=== PATIENT | male | born 1960 | race Caucasian/White ===

== ENCOUNTER 2016-11-14 19:26 | Observation (INO) | payer OTHER ==
--- NOTE | ~2016-11-14 | HP ---
History And Physical [address] [place]. [address] NAME: MANOJ ANDERSON : 58 STATUS : ADM Gabo PAT#: [id number] AGE: 56 ADM/REG DATE : 11/14/16 MR#: [id number] REPORT SERV DATE: 11/15/16 DICTATED BY: MAVIS WOODS JR. DATE: 11/15/16 REPORT STATUS : Draft TRANSCRIBED BY: MODL DATE: 11/15/16 DATE OF ADMISSION: 11/14/2016 REFERRING PHYSICIAN: Mavis Woods M.D. CHIEF COMPLAINT: Chest pain. HISTORY OF PRESENT ILLNESS: The patient is a 56-year-old, white male, with history of known ischemic heart disease, status post cardiac catheterization in November of 2015, for similar symptoms, for which the LAD stent was noted to be patent with DANIEL grade 3 flow. Minor luminal irregularities were noted in other vessels. He has been known to have ejection fraction of approximately 40 to 45% with anteroapical hypokinesis. 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 He presented via ambulance to [facility] for urgent evaluation. Troponin and cardiac enzymes were unremarkable, but he was noted to be hypertensive on arrival. Cardiac enzymes have subsequently been normal. He currently denies any nausea, vomiting, fevers, or chills. REVIEW OF SYSTEMS: A 10-point review of systems otherwise is unremarkable. His symptoms have improved since his electrolytes have been supplemented. ALLERGIES: NONE KNOWN. MEDICATIONS: Have included in the past, aspirin 81 mg daily, Plavix 75 mg daily, losartan, metoprolol, Levemir, and amiodarone, although he did not bring any medications and has no idea of home medications. His family is unable to provide any home list and medication reconciliation at this time is not possible. PAST MEDICAL HISTORY: Notable for history of known ischemic cardiomyopathy with ejection fraction of 40-45% with anterolateral hypokinesis with prior ST elevation myocardial infarction and ventricular fibrillatory arrest, history of acute kidney injury, history of dyslipidemia, prior pneumonia, prior rib fractures, diabetes mellitus, history of emphysema, history of ischemic cardiomyopathy, and a history of mild anxiety. PAST SURGICAL HISTORY: Notable for prior cardiac catheterization, prior PCI with stent. SOCIAL HISTORY: Notable for a dipping tobacco, chewing tobacco. No ethanol or smoking tobacco. FAMILY HISTORY: Notable for heart disease. PHYSICAL EXAMINATION: VITAL SIGNS: Temperature is 97 degrees, pulse is 58, respirations 14. The patient is History And Physical [address] [address] NAME: MANOJ ANDERSON : 58 STATUS : ADM Gabo PAT#: [id number] AGE: 56 ADM/REG DATE : 11/14/16 MR#: [id number] REPORT SERV DATE: 11/15/16 DICTATED BY: MAVIS WOODS JR. DATE: 11/15/16 REPORT STATUS : Draft TRANSCRIBED BY: TONA DATE: 11/15/16 afebrile. HEENT: Unremarkable. NECK: Supple without jugular venous distention. CARDIOVASCULAR SYSTEM: Regular rate and rhythm. S4. No S3. LUNGS: Clear. ABDOMEN: Benign without hepatomegaly. EXTREMITIES: 1+. No pedal edema. NEUROLOGIC: He is grossly intact. LABORATORY DATA: EKG is notable for sinus rhythm, old anterolateral AL, age undetermined. Chest x-ray reported otherwise unremarkable. Sodium 143, potassium 3.2, now treated, chloride 108, BUN 11, creatinine 0.94. Calcium 8.9, magnesium 2.1. H and H of 14.2 and 41.0, white count of 7.9, and platelet count of 251,000. CK-MB negative. Troponin less than 0.02 x2. IMPRESSION: 1. A 56-year-old white male with a history of ischemic cardiomyopathy with known left ventricular systolic dysfunction, history of recent cardiac catheterization with patent stent approximately ten months ago, history of hypertension, hypertensive on arrival. 2. Hypokalemia, symptomatic. PLANS AND RECOMMENDATIONS: 1. Electrolyte supplementation. 2. Reconciliation of medications. 3. Tobacco cessation. 4. Nuclear stress test in the a.m. with further recommendations to follow and further adjustment of medications. LUIS/TONA Mavis Woods Jr., M.D. / [id number] CC: Mavis Woods Jr., M.D.
[~2016-11-14 19:26] MED LIST: AMB10 PO; ASAB PO; BEN25 PO; COREG3 PO; COZ25 PO; GLUCOPHAGE1000 MG PO; HALF81 PO; IMDUR30 PO; LIPITOR40 PO; MEDROLPAK4 PO; PACERONE100 MG PO; PLAVIX PO; RAN500 PO
[2016-11-14 20:00] LABS: BASOPHILS 0.3 %; BASOPHILS ABSOLUTE 0.03 10/3/uL (0.0-0.16); EOSINOPHILS 1.5 %; EOSINOPHILS ABSOLUTE 0.15 10/3/uL (0.0-0.53); ER CBC TAT 0 Hrs 10 Mins; HEMATOCRIT 36.5 % (40.0-51.0); IMMATURE GRANULOCYTES 0.2 %; IMMATURE GRANULOCYTES ABSOLUTE 0.02 10/3/uL (0.0-0.11); LYMPHOCYTES 25.2 %; LYMPHOCYTES ABSOLUTE 2.53 10/3/uL (0.67-4.30); MEAN CORPUS HGB CONC 35.6 g/dL (32.0-36.0); MEAN CORPUSCULAR HEMOGLOB 31.3 pg (26.0-34.0); MEAN PLATELET VOLUME 10.8 fL (9.2-13.0); MONOCYTES 5.2 %; MONOCYTES ABSOLUTE 0.52 10/3/uL (0.21-1.20); NEUTROPHILS 67.6 %; NEUTROPHILS ABSOLUTE 6.78 10/3/uL (2.02-8.40); PLATELET COUNT 257 10/3/uL (150-400); RED CELL COUNT 4.16 10/6/uL (4.7-6.1)
[2016-11-14 20:01] LABS: MANUAL DIFF NO %; MEAN CORPUSCULAR VOLUME 87.7 fL (80-100)
[2016-11-14 20:08] LABS: INTERNATIONAL NORMAL RATI 1.1 UNITS (-); PROTIME (NOT ORD) 13.8 SEC (12.0-14.5)
[2016-11-14 20:16] LABS: A/G RATIO 1.4 (0.7-1.9); ALBUMIN 3.7 G/DL (3.5-5.0); ALKALINE PHOSPHATASE 54 U/L (45-117); CALCIUM, SERUM 8.9 MG/DL (8.5-10.4); CHLORIDE, SERUM 108 MMOL/L (96-112); CO2 (CARBON DIOXIDE) 24 MMOL/L (24-34); CREATININE 0.94 MG/DL (0.70-1.30); GFR AFRICAN AMERICAN 104 ML/MIN (>=60); GFR NON AFRICAN AMERICAN 90 ML/MIN (>=60); GLOBULIN 2.6 G/DL (2.5-4.1); POTASSIUM, SERUM 3.2 MMOL/L (3.5-5.3); SGOT(AST) 14 U/L (5-40); SGPT(ALT) 24 U/L (5-65); SODIUM, SERUM 143 MMOL/L (135-148); TOTAL BILIRUBIN 0.5 MG/DL (0-1.2); TOTAL PROTEIN 6.3 G/DL (6.0-8.5); TROPONIN I <0.02 NG/ML (<0.05)
[2016-11-14 20:19] LABS: BUN (BLOOD UREA NITROGEN) 11 MG/DL (6-23); GLUCOSE, SERUM 91 MG/DL (60-99)
[2016-11-14] MEDS ORDERED: PLAVIX PO (21:43)
[2016-11-14] MEDS ORDERED: GLUCPH PO (21:43)
[2016-11-14] MEDS ORDERED: HALF81 PO (21:44)
[2016-11-14] MEDS ORDERED: BEN25 PO (21:44)
[2016-11-14] MEDS ORDERED: NITROSTAT0.4 MG SL (21:44)
[2016-11-14] MEDS ORDERED: *UNABLE1 (21:44)
[2016-11-15 03:39] LABS: BASOPHILS 0.5 %; BASOPHILS ABSOLUTE 0.04 10/3/uL (0.0-0.16); EOSINOPHILS 2.7 %; EOSINOPHILS ABSOLUTE 0.21 10/3/uL (0.0-0.53); HEMOGLOBIN 14.2 g/dL (13.6-17.8); IMMATURE GRANULOCYTES 0.1 %; IMMATURE GRANULOCYTES ABSOLUTE 0.01 10/3/uL (0.0-0.11); LYMPHOCYTES 33.1 %; MANUAL DIFF NO %; MEAN CORPUS HGB CONC 34.6 g/dL (32.0-36.0); MEAN CORPUSCULAR HEMOGLOB 30.9 pg (26.0-34.0); MEAN CORPUSCULAR VOLUME 89.3 fL (80-100); MEAN PLATELET VOLUME 11.1 fL (9.2-13.0); MONOCYTES 6.4 %; NEUTROPHILS 57.2 %; PLATELET COUNT 251 10/3/uL (150-400); RBC DISTRIBUTION WIDTH 13.3 % (12.0-16.0); RED CELL COUNT 4.59 10/6/uL (4.7-6.1); WHITE BLOOD CELLS 7.9 10/3/uL (4.5-10.5)
[2016-11-15 04:02] LABS: CHOL/HDL RATIO(NOT ORDER) 2.3 (0-5); CHOLESTEROL 133 MG/DL (< 200); HDL CHOLESTEROL 58 MG/DL (> 39); LDL CHOLESTEROL 44 MG/DL (< 130); NON-HDL CHOLESTEROL 75 MG/DL (< 160); SGPT(ALT) 23 U/L (5-65); TROPONIN I <0.02 NG/ML (<0.05)
[2016-11-15 04:11] LABS: TRIGLYCERIDE 159 MG/DL (< 150)
[2016-11-15] MEDS ORDERED: CELEXA10 PO (13:59)
[2016-11-15] MEDS ORDERED: COREG3 PO (13:59)
[2016-11-15] MEDS ORDERED: PACERONE100 MG PO (14:00)
[2016-11-15] MEDS ORDERED: IMDUR30 PO (14:00)
[2016-11-15] MEDS ORDERED: COZ25 PO (14:00)
[2016-11-15] MEDS ORDERED: RAN500 PO (14:00)
[2016-11-15] MEDS ORDERED: AMB10 PO (14:01)
[2016-11-15 16:51] LABS: BUN (BLOOD UREA NITROGEN) 14 MG/DL (6-23); CALCIUM, SERUM 8.5 MG/DL (8.5-10.4); CHLORIDE, SERUM 107 MMOL/L (96-112); CO2 (CARBON DIOXIDE) 28 MMOL/L (24-34); GFR AFRICAN AMERICAN 77 ML/MIN (>=60); GFR NON AFRICAN AMERICAN 67 ML/MIN (>=60); SODIUM, SERUM 143 MMOL/L (135-148)
[2016-11-15 16:55] LABS: GLUCOSE, SERUM 65 MG/DL (60-99); POTASSIUM, SERUM 4.1 MMOL/L (3.5-5.3)
[2016-11-16 05:16] LABS: BASOPHILS 0.3 %; BASOPHILS ABSOLUTE 0.02 10/3/uL (0.0-0.16); EOSINOPHILS 2.9 %; EOSINOPHILS ABSOLUTE 0.22 10/3/uL (0.0-0.53); HEMATOCRIT 39.1 % (40.0-51.0); HEMOGLOBIN 13.7 g/dL (13.6-17.8); LYMPHOCYTES 28.5 %; LYMPHOCYTES ABSOLUTE 2.14 10/3/uL (0.67-4.30); MEAN CORPUSCULAR HEMOGLOB 31.4 pg (26.0-34.0); MEAN CORPUSCULAR VOLUME 89.5 fL (80-100); MEAN PLATELET VOLUME 10.9 fL (9.2-13.0); MONOCYTES 5.7 %; MONOCYTES ABSOLUTE 0.43 10/3/uL (0.21-1.20); NEUTROPHILS 62.6 %; NEUTROPHILS ABSOLUTE 4.69 10/3/uL (2.02-8.40); PLATELET COUNT 238 10/3/uL (150-400); RBC DISTRIBUTION WIDTH 13.3 % (12.0-16.0); RED CELL COUNT 4.37 10/6/uL (4.7-6.1); WHITE BLOOD CELLS 7.5 10/3/uL (4.5-10.5)
[2016-11-16 05:21] LABS: MANUAL DIFF NO %
[2016-11-16 05:32] LABS: BUN (BLOOD UREA NITROGEN) 12 MG/DL (6-23); CALCIUM, SERUM 8.7 MG/DL (8.5-10.4); CHLORIDE, SERUM 108 MMOL/L (96-112); CO2 (CARBON DIOXIDE) 24 MMOL/L (24-34); CREATININE 0.94 MG/DL (0.70-1.30); GFR AFRICAN AMERICAN 104 ML/MIN (>=60); GFR NON AFRICAN AMERICAN 90 ML/MIN (>=60); POTASSIUM, SERUM 4.1 MMOL/L (3.5-5.3); SODIUM, SERUM 142 MMOL/L (135-148)
[2016-11-16 05:42] LABS: GLUCOSE, SERUM 115 MG/DL (60-99)
[2016-11-16] MEDS ORDERED: PROTONIX PO (16:46)
[2016-11-16] MEDS ORDERED: RANEXA1000 MG PO (16:46)
== END 2016-11-16 17:01 | disposition home or self-care (01) ==
LOC: ER 19:26 → CDU1 20:56 → CDU2 21:53
PROVIDERS: Emergency Medicine; Internal Medicine Cardiovascular Disease
DX: I25.5 Ischemic cardiomyopathy (principal); I25.2 Old myocardial infarction; E78.5 Hyperlipidemia, unspecified; E11.9 Type 2 diabetes mellitus without complications; E87.6 Hypokalemia; F41.9 Anxiety disorder, unspecified; Z79.82 Long term (current) use of aspirin
CPT/HCPCS: 71010; 78452; 80048; 80053; 80061; 82962; 83735; 84460; 84484; 85025; 85610; 85730; 93005; 93017; 96372; 99285; A9270-GY; A9502; G0378